=== PATIENT | male | born 1960 | race Caucasian/White ===

== ENCOUNTER 2023-05-12 06:57 | Emergency (ER) | payer BC, OTHER ==
[2023-05-12 07:12] VITALS: BP 125/71; PULSE 64; RESP 18; TEMP 97.9; BMI 29.0
== END 2023-05-12 08:18 | disposition home or self-care (01) ==
LOC: JER 06:57
DX: H92.01 Otalgia, right ear (principal); H61.21 Impacted cerumen, right ear
CPT/HCPCS: 99282-25